=== PATIENT | female | born 1995 | race Caucasian/White ===

== ENCOUNTER 2017-08-06 20:23 | Emergency (ER) | payer SELFPAY ==
[~2017-08-06] VITALS: Ht 167.6 cm; Wt 81.6 kg
[2017-08-06 20:30] VITALS: Ht 167.6 cm; Wt 81.6 kg
[2017-08-06 22:33] VITALS: BP 120/70
== END 2017-08-06 22:33 | disposition home or self-care (01) ==
LOC: ED 20:23
DX: T78.3XXA Angioneurotic edema, initial encounter (principal); Z88.8 Allergy status to other drugs, medicaments and biological substances
CPT/HCPCS: J1200; J2930; J3490